=== PATIENT | male | born 1990 | race Two or more races ===

== ENCOUNTER 2024-02-18 09:33 | Outpatient (AMB) | payer OTHER, SELFPAY ==
--- NOTE | 2024-02-18 09:32 | AM.OFFWIN_ITS ---
Intake Vital Signs 02/18/24 09:35 Height 5 ft 7 in Weight 260 lb BMI 40.7 BP 138/80 Blood Pressure Location Lt brachial Position Sitting Pulse 84 Pulse Source Pulse Oximeter Temp 97.7 F Temp Source Temporal Artery Scan Pulse Oximetry (%) 99 Oxygen Delivery Method Room Air Intake Visit Reasons: [employer] LT ankle injury/swelling Intake Note: pt is here today for lft ankle injury swelling started 2 weeks ago Patient Tobacco Use Status: Never used Tobacco Allergies No Known Allergies Allergy (Verified 02/18/24 09:38) Do you need a note to return to daycare/school/sports/work: No HPI HPI Comments History of Present Illness Details Patient presents to the walk-in today for sick visit Endorses left ankle pain and swelling Was helping a friend move and going backwards down a couple stairs, at the last step his ankle rolled He is able to bear weight but with pain Pain worse with walking, standing PFSH Social History Patient Tobacco Use Status: Never used Tobacco Review of Systems Const All systems reviewed & are unremarkable except as noted in HPI and below Physical Exam Vital Signs: Last Vital Signs Temp 97.7 F 02/18/24 09:35 Pulse 84 02/18/24 09:35 BP 138/80 02/18/24 09:35 Pulse Ox 99 02/18/24 09:35 Oxygen Delivery Method Room Air 02/18/24 09:35 BMI result Body Mass Index 40.7 General: awake, alert, oriented. Answers questions appropriately. Fully engaged in examination. Skin: warm, dry, intact HEENT: Normocephalic. Hearing intact. Cardiac: External chest normal in appearance. Respiratory: No cough, audible wheezing or stridor. Abdomen: without gross distension. MS: Left ankle: Swelling, tender to palpation.+DP and PT pulses. Tenderness along lateral malleolus. Ambulates with antalgic gait Neurological: Oriented to person, place, time and situation. Thought process intact. Psychiatric: Appropriate mood and affect. Good judgment and insight. Results Reviewed Results Reviewed: Left ankle x-ray ordered and independently reviewed: No fracture dislocation Assessment & Plan Assessment & Plan (1) Left ankle injury: Code(s): S99.912A - Unspecified injury of left ankle, initial encounter (2) Left ankle sprain: Code(s): S93.402A - Sprain of unspecified ligament of left ankle, initial encounter Plan Left ankle X-ray ordered independently reviewed: No fracture or dislocation Support brace applied to left ankle, patient advised on use Rest, ice, elevate Work note provided Referral placed for Orthopedics Follow up with PCP or return here for any new or worsening symptoms. Orders: Orders XR ankle LT min 3V Today S99.912A - Unspecified injury of left ankle, initial encounter Coding Level of Care Code New Pt Level 4 (74645) Diagnoses Left ankle injury S99.912A Left ankle sprain S93.402A
[2024-02-18 09:35] VITALS: BP 138/80; PULSE 84; TEMP 36.5; O2SAT 99; BMI 40.7
== END 2024-02-18 10:33 | disposition home or self-care (01) ==
PROVIDERS: Visit Provider Registered Nurse Emergency
DX: S99.912A Unspecified injury of left ankle, initial encounter (principal); S93.402A Sprain of unspecified ligament of left ankle, initial encounter
CPT/HCPCS: 99204

== ENCOUNTER 2024-02-18 10:07 | Outpatient (REF) | payer OTHER, SELFPAY ==
--- NOTE | ~2024-02-18 | XR_ITS ---
EXAMINATION: XR ANKLE, LEFT CLINICAL INFORMATION: Unspecified injury of left ankle COMPARISON: None available. TECHNIQUE: AP, lateral, and mortise views of the left ankle. FINDINGS: There is bilateral soft tissue swelling, lateral greater than medial. No fracture. Alignment is anatomic. No erosions. Joint spaces are maintained. XR/XR ankle LT min 3V IMPRESSION: Bilateral soft tissue swelling, lateral greater than medial. No fracture.
== END 2024-02-18 10:08 | disposition home or self-care (01) ==
LOC: HO.HMGCX 10:07
PROVIDERS: Visit Provider Registered Nurse Emergency
DX: S99.912A Unspecified injury of left ankle, initial encounter (principal)
CPT/HCPCS: 73610